=== PATIENT | female | born 1945 | race Caucasian/White ===

== ENCOUNTER → 2020-03-24 | Outpatient (CLI) | payer MEDICARE ==
[~2020-03-24] MED LIST: BASAGLAR K100 UNIT/1 SQ; FENOFIBRATE160 MG PO; HYDROCODON-ACE1 EAC4 PO; LEVOTHYROXINE50 MCG PO; LIPITOR20 MG PO; LIPITOR40 MG PO; LO-DOSE ASPIRIN81 MG PO; LOPRESSOR100 MG PO; MULTAQ400 MG PO; NORVASC 5 MG TAB5 MG PO; NORVASC2.5 MG PO; PROTONIX 40 MG40 M1 PO; SYNTHROID50 MCG PO; VALSARTAN-HCTZ1 EACH PO; VICTOZA 1818 MG/3 ML SC; XARELTO20 MG PO
== END ==
LOC: LAB 10:10
PROVIDERS: Internal Medicine Cardiovascular Disease
DX: I25.119 Atherosclerotic heart disease of native coronary artery with unspecified angina pectoris (principal); E78.5 Hyperlipidemia, unspecified; I10 Essential (primary) hypertension; I48.0 Paroxysmal atrial fibrillation; I49.5 Sick sinus syndrome
CPT/HCPCS: 36415; 80048; 80061; 80076

== ENCOUNTER → 2020-03-27 | Outpatient (CLI) | payer MEDICARE | LOC: HEART 5 08:30 | DX: I25.119 Atherosclerotic heart disease of native coronary artery with unspecified angina pectoris (principal); R94.39 Abnormal result of other cardiovascular function study | CPT/HCPCS: 78452; A9502; J2785 ==

== ENCOUNTER 2020-08-17 17:24 | Emergency (ER) | payer MEDICARE ==
[~2020-08-17 17:24] MED LIST changes: -HYDROCODON-ACE1 EAC4 PO
[2020-08-17] MEDS ORDERED: HYDROCODON-ACE1 EAC4 PO (19:30)
== END 2020-08-17 19:33 | disposition home or self-care (01) ==
LOC: ER1 17:24
DX: M25.461 Effusion, right knee (principal); E11.9 Type 2 diabetes mellitus without complications; I11.9 Hypertensive heart disease without heart failure; E03.9 Hypothyroidism, unspecified; Z88.0 Allergy status to penicillin
CPT/HCPCS: 73562; 99283